=== PATIENT | male | born 1975 | race Hispanic/Latino ===

== ENCOUNTER 2025-01-26 12:26 | Emergency (ER) | payer BC, OTHER ==
[~2025-01-26] VITALS: Ht 172.7 cm; Wt 99.8 kg
[~2025-01-26 12:26] MED LIST: AEC81 PO; ATOR10 PO; CLOP-31 PO; MECL-302 PO; METO25 PO
[2025-01-26 12:27] VITALS: TEMP 97.9
--- NOTE | 2025-01-26 12:40 | ERN ---
General Chief Complaint: Chest Pain Stated Complaint: CHEST PAIN Time Seen by MD: 12:28 Time Seen by Midlevel: 12:28 Source: patient History of Present Illness Initial Comments Patient is a 49-year-old male with a past medical history of hypertension and hyperlipidemia presenting to the emergency department for evaluation of chest pain that started approximately 6 hours prior to arrival. Patient states his chest pain started after he was doing cocaine. On arrival he states his chest pain has significantly improved. Denies any shortness for breath, or any other symptoms at this time. Allergies: Coded Allergies: No Known Drug Allergies (Unverified Allergy, Unknown, 12/06/23) Home Meds Active Scripts Metoprolol Tartrate (Lopressor) 25 Mg Tab, 12.5 MG PO BID, #60 TAB 0 Refills Prov:RAEGAN ABREU MD 12/08/23 Meclizine HCl (Meclizine HCl) 25 Mg Tablet, 25 MG PO TID PRN for DIZZINESS, #30 TAB 0 Refills Prov:RAEGAN ABREU MD 12/08/23 Clopidogrel Bisulfate (Plavix) 75 Mg Tablet, 75 MG PO DAILY, #30 TAB 0 Refills Prov:RAEGAN ABREU MD 12/08/23 Atorvastatin Calcium (LIPITOR) 10 Mg Tab, 10 MG PO DAILY, #30 TAB 0 Refills Prov:RAEGAN ABREU MD 12/08/23 Aspirin (ASPIRIN 81 MG ECTAB) 81 Mg Ectab, 81 MG PO DAILY, #30 TAB.EC 0 Refills Prov:RAEGAN ABREU MD 12/08/23 Past Medical History Past Medical History: No Pertinent History, Hypertension Past Surgical History: Other Social History Social History: Negative, Lives with family ROS Dictation CONSTITUTIONAL: Negative except for HPI HEAD/FACE: Negative except for HPI EENT: Negative except for HPI RESPIRATORY: Negative except for HPI GASTROINTESTINAL/ABDOMINAL: Negative except for HPI GENITOURINARY: Negative except for HPI MUSCULOSKELETAL: Negative except for HPI INTEGUMENTARY: Negative except for HPI NEUROLOGICAL/PSYCH: Negative except for HPI HEMATOLOGIC/LYMPHATIC: Negative except for HPI All Systems Negative, Except as noted above. 13 point review of systems assessed and all negative except for above. Physical Exam Physical Exam Dictation Vital Signs reviewed General Appearance: Alert, oriented x 3, no acute distress, well developed, nourished. Head and Face: non-traumatic. Eyes: PERRL, pink conjunctivas, eyelid no trauma, anterior chamber with arcus senilis. Ears: Pinnas intact and no signs of trauma or erythema ear canals clear and no discharge TM no erythema Nose: No discharge, no bleeding. Oropharynx: Mouth normal, tongue pink, pharynx clear,no erythema, tonsils no exudates, no abscesses noted, mucous membrane moist Neck: Supple, non-tender, no thyromegaly, no masses, no JVD, no bruits Breast:Deferred Chest:No tenderness, no crepitus, no paradoxical movement, no retractions Lungs:Clear, well-ventilated, symmetric, no rales, no wheezing, no rhonchi, no stridor, good breath sounds bilaterally Heart: Regular rate, regular rhythm, no murmur, no gallops Vascular: no peripheral edema, Abdomen: Soft, positive bowel sounds, nondistended, no guarding, nontender, no rebound, no masses no hepatomegaly, no splenomegaly, no Guidry's sign, no hernias. Rectal: Deferred Genital: Deferred Neurological: Normal speech, motor function intact, sensory function intact Musculoskeletal: Neck nontender, full range of motion, back nontender, full range of motion, Extremities: nontender, full range of motion Skin: Color pink, dry, no turgor, no rash, no lacerations, no abrasions, no con tusions. Lymphatic: Deferred Results Laboratory and Microbiology Lab and Micro Result Laboratory Tests Test 01/26/25 13:07 01/26/25 13:18 White Blood Count 7.3 K/uL (4.8-10.8) Red Blood Count 4.85 MIL/uL (4.50-6.20) Hemoglobin 14.9 g/dL (14.0-18.0) Hematocrit 42.7 % (42-54) Mean Corpuscular Volume 88.0 fL (79-99) Mean Corpuscular Hemoglobin 30.7 pg (27.0-33.0) Mean Corpuscular Hemoglobin Concent 34.9 g/dL (32.0-36.0) Red Cell Distribution Width 13.2 % (11.0-15.5) Platelet Count 196 K/uL (130-400) Mean Platelet Volume 9.8 fL (7.5-10.5) Immature Granulocyte % (Auto) 0.7 % (0-1) Neutrophils (%) (Auto) 57.5 % (40.0-77.0) Lymphocytes (%) (Auto) 30.7 % (21.0-51.0) Monocytes (%) (Auto) 7.2 % (3.0-13.0) Eosinophils (%) (Auto) 3.3 % (0.0-8.0) Basophils (%) (Auto) 0.6 % (0.0-5.0) Neutrophils # (Auto) 4.2 K/uL (1.8-7.7) Lymphocytes # (Auto) 2.2 K/uL (1.0-4.8) Monocytes # (Auto) 0.5 K/uL (0.1-1.0) Eosinophils # (Auto) 0.24 K/uL (0.00-0.70) Basophils # (Auto) 0.04 K/uL (0.00-0.20) Absolute Immature Granulocyte (auto 0.05 K/uL (0-1) Nucleated Red Blood Cells 0.0 % (0.0-0.19) Sodium Level 141 mmol/L (136-145) Potassium Level 3.6 mmol/L (3.5-5.1) Chloride Level 104 mmol/L (101-111) Carbon Dioxide Level 28 mmol/L (21-32) Blood Urea Nitrogen 7 mg/dL (7-18) Creatinine 1.0 mg/dL (0.5-1.3) Glomerular Filtration Rate Calc 93 mL/min (>90) Random Glucose 148 mg/dL (70-105) H Total Calcium 9.0 mg/dL (8.5-10.1) Magnesium Level 2.20 mg/dL (1.80-2.40) Total Creatine Kinase 496 U/L (21-232) #*H Troponin I High Sensitivity 224 ng/L (4-75) *H B-Type Natriuretic Peptide 12 pg/mL (0-100) Urine Color LIGHT-YELLOW (YELLOW) Urine Appearance CLEAR (CLEAR) Urine pH 6.5 (5.0-8.0) Urine Specific [place] 1.014 (1.001-1.031) Urine Protein NEGATIVE mg/dL (NEGATIVE) Urine Glucose (UA) NEGATIVE mg/dL (NEGATIVE) Urine Ketones NEGATIVE mg/dL (NEGATIVE) Urine Occult Blood NEGATIVE (NEGATIVE) Urine Nitrate NEGATIVE (NEGATIVE) Urine Bilirubin NEGATIVE mg/dL (NEGATIVE) Urine Urobilinogen 6 mg/dL (0.2-1.0) H Urine Leukocyte Esterase NEGATIVE Adalberto/uL Labs Reviewed?: Yes MDM MDM: 41-year-old male presenting to the emergency department for evaluation of chest pain after cocaine use. On arrival the patient was in no acute distress. He states his chest pain has resolved. Cardiac workup was initiated. His EKG shows sinus tachycardia but no ST elevations or bundle branch blocks. His initial troponin is elevated. My plan was to admit the patient for further observation and management but he was like to sign out against medical advice. And aspirin was administered and the patient decided to leave against medical ad vice. Risks were discussed with the patient and he understands Differential diagnosis: Acute coronary syndrome, cocaine abuse, electrolyte abnormality Rationale: Tests considered and ordered secondary to shared decision making include: Previous outside records reviewed: Old ER visits. Risk of complication and/or morbidity or mortality of patient management: None Medications-Per medication reconciliation Need for hospitalization: Patient does meet criteria for hospitalization. Need for emergency major/minor surgery: No There are no social concerns with this patient. Prescription drug management Prescriptions will include symptomatic care Patient's prior external medical records from other ER visits were reviewed by me as indicated. Prior testing and results from previous visits were reviewed. Prior tests were taken into account with medical decision making and resource utilization, independent historian/historians were used to obtain complete medical history. I independently interpreted the test that were performed, results were reviewed by me and considered findings on radiology if ordered. Medical management and examination interpretation discussions were had by me with other qualified healthcare professionals as indicated for the patient's care. ED Course Orders Procedure Category Date Status Time Cbc With Differential LAB 01/26/25 Complete 12:30 B-Type Natriuretic LAB 01/26/25 Complete Peptide 12:30 Chest 1vw RAD 01/26/25 Taken 12:30 12 Lead Ekg Tracing- EKG 01/26/25 Complete Technical 12:30 Magnesium LAB 01/26/25 Complete 12:30 Creatine Kinase, Total LAB 01/26/25 Complete 12:30 Troponin I High LAB 01/26/25 Complete Sensitivity 12:30 Urinalysis Profile LAB 01/26/25 In Process 12:30 Basic Metabolic Panel LAB 01/26/25 Complete 12:30 Drug Screen Urine LAB 01/26/25 In Process 12:30 Aspirin 325mg Tab PHA 01/26/25 In Process (Aspirin 325mg Tab) 14:00 Current Medications Medications (Trade) Dose Ordered Sig/Jayesh Route PRN Reason Start Time Stop Time Status Last Admin Dose Admin Aspirin (Aspirin 325mg Tab) 325 mg ONCE ONCE PO 01/26/25 14:00 01/26/25 14:01 01/26/25 13:44 Vital Signs Date Time Temp Pulse Resp B/P (MAP) Pulse Ox O2 Delivery O2 Flow Rate FiO2 01/26/25 13:16 92 14 145/76 96 Room Air* 0 21 01/26/25 12:27 97.9 99 20 163/82 98 Room Air HEART Score Response (Comments) Value History: Moderate suspicion (+1) 1 EKG: Normal 0 Age: 45-65yrs (+1) 1 Risk Factors: 1-2 risk factors (+1) 1 Initial Troponin: 1-3x Normal Limit (+1) 1 HEART Score Risk: Mod Risk for MACE (4-6) Total 4 DX & DISP Disposition: AMA (1:50PM) Departure Impression: Primary Impression: Elevated troponin Additional Impression: Left against medical advice Condition: Stable Referrals: NONE (PCP) I have reviewed the case, and I agree with, Diagnosis and Plan I performed the substantive portion of the visit. I have reviewed and personally made and approve the management plan that is documented in the note by myself or the LUX. I acknowledge for responsibility for the patient's management plan. JUAN MOODY Jan 26, 2025 12:39
--- NOTE | 2025-01-26 12:41 | EKG ---
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
[2025-01-26 13:16] VITALS: BP 145/76; PULSE 92; RESP 14; O2SAT 96
[2025-01-26 13:17] LABS: BASOPHILS # (AUTO) 0.04 K/uL (0.00-0.20); BASOPHILS % (AUTO) 0.6 % (0.0-5.0); EOSINOPHILS # (AUTO) 0.24 K/uL (0.00-0.70); EOSINOPHILS % (AUTO) 3.3 % (0.0-8.0); HEMATOCRIT 42.7 % (42-54); IMMATURE GRANULOCYTE ABSOLUTE 0.05 K/uL (0-1); LYMPHOCYTES # (AUTO) 2.2 K/uL (1.0-4.8); LYMPHOCYTES % (AUTO) 30.7 % (21.0-51.0); MEAN CORPUSCULAR HEMOGLOBIN 30.7 pg (27.0-33.0); MEAN CORPUSCULAR HGB CONC 34.9 g/dL (32.0-36.0); MONOCYTES # (AUTO) 0.5 K/uL (0.1-1.0); MONOCYTES % (AUTO) 7.2 % (3.0-13.0); NEUTROPHILS # (AUTO) 4.2 K/uL (1.8-7.7); NEUTROPHILS % (AUTO) 57.5 % (40.0-77.0); PLATELET COUNT (AUTO) 196 K/uL (130-400); RED BLOOD CELL COUNT(AUTO) 4.85 MIL/uL (4.50-6.20); RED CELL DISTRIBUTION WIDTH 13.2 % (11.0-15.5); WHITE BLOOD COUNT (AUTO) 7.3 K/uL (4.8-10.8)
[2025-01-26 13:27] LABS: POTASSIUM 3.6 mmol/L (3.5-5.1)
[2025-01-26 13:40] LABS: MAGNESIUM 2.2 mg/dL (1.80-2.40)
[2025-01-26] MEDS: ASPIRIN 325MG TAB PO ONE (13:44)
[2025-01-26 13:47] LABS: B-TYPE NATRIURETIC PEPTIDE 12 pg/mL (0-100)
[2025-01-26 13:50] LABS: APPEARANCE,URINE CLEAR (CLEAR); BILIRUBIN,URINE NEGATIVE (NEGATIVE); COLOR,URINE LIGHT-YELLOW (YELLOW); GLUCOSE, URINE (UA) NEGATIVE (NEGATIVE); KETONES,URINE NEGATIVE (NEGATIVE); LEUKOCYTE ESTERASE ,URINE NEGATIVE Leu/uL (NEGATIVE); NITRATE,URINE NEGATIVE (NEGATIVE); OCCULT BLOOD,URINE NEGATIVE (NEGATIVE); PH,URINE 6.5 (5.0-8.0); PROTEIN,URINE NEGATIVE (NEGATIVE); UROBILINOGEN,URINE 6 mg/dL (0.2-1.0)
[2025-01-26 13:54] LABS: ADD UA MICROSCOPIC YES
--- NOTE | 2025-01-26 13:54 | NUR ---
PT WAS ADVISED ADMISSION FOR FURTHER WORKUP BY Bandar ALFREDO, PT REFUSED AND WANTING TO LEAVE AMA. SIGNED AMA FORM.
[2025-01-26 13:55] LABS: RBC,URINE 0-1 /HPF (0-1); WBC,URINE 0-1 /HPF (0-1)
[2025-01-26 14:06] LABS: AMPHET/METH SCREEN,URINE NEGATIVE (NEGATIVE); BARBITURATE SCREEN, URINE NEGATIVE (NEGATIVE); BENZODIAZEPINES SCREEN,URINE NEGATIVE (NEGATIVE); CANNABINOID SCREEN,URINE NEGATIVE (NEGATIVE); COCAINE SCREEN,URINE POSITIVE (NEGATIVE); OPIATE SCREEN,URINE NEGATIVE (NEGATIVE); PHENCYCLIDINE SCREEN,URINE NEGATIVE (NEGATIVE)
--- NOTE | 2025-01-26 14:55 | HMCIMG ---
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 Heart size is normal. The pulmonary vascularity and nicanor appear normal. No abnormal pulmonary parenchymal opacity or consolidation identified. No significant pleural effusion noted. No pneumothorax detected. IMPRESSION: No radiographic evidence for any acute cardiopulmonary process.
== END 2025-01-26 13:52 | disposition left against medical advice (07) ==
LOC: EDH 12:26
DX: R79.89 Other specified abnormal findings of blood chemistry (principal); I10 Essential (primary) hypertension; E78.5 Hyperlipidemia, unspecified; Z79.02 Long term (current) use of antithrombotics/antiplatelets; Z79.82 Long term (current) use of aspirin; Z79.899 Other long term (current) drug therapy
CPT/HCPCS: 36415; 71045; 80048; 80305; 81001; 82550; 83735; 83880; 84484; 85025; 93005; 99284

== ENCOUNTER 2025-09-24 06:21 | Emergency (ER) | payer BC ==
[~2025-09-24] VITALS: Ht 170.2 cm; Wt 86.2 kg
[2025-09-24 06:44] LABS: IMMATURE GRANULOCYTE ABSOLUTE 0.04 K/uL (0-1); NUCLEATED RED BLOOD CELLS 0.0 % (0.0-0.19); PLATELET COUNT (AUTO) 189 K/uL (130-400); RED BLOOD CELL COUNT(AUTO) 4.87 MIL/uL (4.50-6.20); RED CELL DISTRIBUTION WIDTH 12.7 % (11.0-15.5); WHITE BLOOD COUNT (AUTO) 9.2 K/uL (4.8-10.8)
[2025-09-24 06:59] LABS: CREATINE KINASE, TOTAL 212.0 U/L (21-232); CREATININE 0.9 mg/dL (0.5-1.3); GLOMERULAR FILTR. RATE CALC 105.0 mL/min (>90); GLUCOSE,RANDOM 100.0 mg/dL (70-105); SODIUM SERUM 139.0 mmol/L (136-145); UREA NITROGEN, BLOOD 7.0 mg/dL (7-18)
--- NOTE | 2025-09-24 07:18 | HMCIMG ---
EXAM: CR Chest, 1 View. CLINICAL HISTORY: chest pain COMPARISON: None provided. FINDINGS: LUNGS: The lungs show no infiltrate or other acute finding. PLEURAL SPACES: No evidence of pleural effusion or pneumothorax. MEDIASTINUM: Cardiac size and mediastinal contours are within normal limits. BONES: No aggressive appearing osseous lesion seen. IMPRESSION: No acute cardiopulmonary pathology is evident. /[place]
--- NOTE | 2025-09-24 07:58 | ERN ---
General Chief Complaint: Chest Pain Stated Complaint: CHEST PAIN Time Seen by MD: 07:36 Source: patient History of Present Illness Initial Comments My patient, 50-year-old male, was brought by EMS to the emergency with complaint of chest pressure. Patient stated that it began in the afternoon yesterday after he had a bottle of beer. It was pressure-like sensation in the center of chest without radiation to any part of the body. He denied shortness of breath or nausea. He states that pain has resolved now. He also takes aspirin at home regularly. Severity: moderate Allergies: Coded Allergies: No Known Drug Allergies (Unverified Allergy, Unknown, 12/06/23) Home Meds Active Scripts Metoprolol Tartrate (Lopressor) 25 Mg Tab, 12.5 MG PO BID, #60 TAB 0 Refills Prov:RAEGAN ABREU MD 12/08/23 Meclizine HCl (Meclizine HCl) 25 Mg Tablet, 25 MG PO TID PRN for DIZZINESS, #30 TAB 0 Refills Prov:RAEGAN ABREU MD 12/08/23 Clopidogrel Bisulfate (Plavix) 75 Mg Tablet, 75 MG PO DAILY, #30 TAB 0 Refills Prov:RAEGAN ABREU MD 12/08/23 Atorvastatin Calcium (LIPITOR) 10 Mg Tab, 10 MG PO DAILY, #30 TAB 0 Refills Prov:RAEGAN ABREU MD 12/08/23 Aspirin (ASPIRIN 81 MG ECTAB) 81 Mg Ectab, 81 MG PO DAILY, #30 TAB.EC 0 Refills Prov:RAEGAN ABREU MD 12/08/23 Past Medical History Past Medical History: No Pertinent History, Hypertension Past Surgical History: Other Social History Social History: Negative, Lives with family Constitutional: (-) chills, (-) diaphoresis, (-) fever, (-) malaise, (-) weakne ss, (-) other documentation EENTM: (-) eye pain, (-) blurred vision, (-) tearing, (-) double vision, (-) e ar pain, (-) ear discharge, (-) nose pain, (-) nose congestion, (-) throat pain, (-) Throat swelling, (-) mouth pain, (-) tooth pain, (-) mouth swelling, (-) other documentation Respiratory: (-) cough, (-) orthopnea, (-) short of breath, (-) stridor, (-) wheezing, (-) other documentation Cardiovascular: (+) chest pain (Resolved now) Gastrointestinal/Abdominal: (-) nausea, (-) vomiting, (-) diarrhea, (-) abdominal pain, (-) abdominal distention, (-) constipation, (-) rectal bleeding, (-) dark stool/melena, (-) other documentation Genitourinary: (-) penile discharge, (-) dysuria, (-) frequency, (-) hematuria, (-) pain, (-) other documentation Musculoskeletal: (-) Neck pain, (-) back pain, (-) Flank Pain, (-) joint pain, (-) joint swelling, (-) muscle pain, (-) muscle stiffness, (-) gout, (-) other documentation Skin: (-) laceration, (-) contusion, (-) abrasion, (-) abscess, (-) rash, (-) change in color, (-) change in hair, (-) change in nails, (-) diaphoresis, (-) dryness, (-) other documentation Neuro: (-) altered mental status, (-) headache, (-) syncope, (-) paralysis, (-) numbness, (-) seizure, (-) pre-existing deficit, (-) tremors, (-) weakness, (-) dizziness, (-) slurred speech, (-) vertigo, (-) other documentation Physical Exam General Appearance: (+) no apparent distress Orientation: (+) alert, (+) oriented x 3 Head/Face Trauma: No Eye: bilateral eye normal inspection Ear, Nose, Throat: (+) hearing grossly normal, (+) normal ENT inspection, (+) moist mucous membraine, (+) normal pharynx Neck: (+) normal inspection, (+) supple, (+) full range of motion Respiratory: (+) chest non-tender, (+) lungs clear, (+) well ventilated Heart: (+) regular Vascular: (+) no edema Gastrointestinal: (+) soft, (+) non-tender, (+) no organomegaly Back: (+) normal inspection, (+) no vertebral tenderness Extremities: (+) normal range of motion, (+) non-tender, (+) normal inspection Neurologic/Psychiatric: (+) normal speech, (+) no motor defecits, (+) no sensory deficits Skin: (+) normal color Results Laboratory and Microbiology Lab and Micro Result Laboratory Tests Test 09/24/25 06:34 09/24/25 07:45 09/24/25 07:48 09/24/25 08:36 White Blood Count 9.2 K/uL (4.8-10.8) Red Blood Count 4.87 MIL/uL (4.50-6.20) Hemoglobin 15.2 g/dL (14.0-18.0) Hematocrit 43.4 % (42-54) Mean Corpuscular Volume 89.1 fL (79-99) Mean Corpuscular Hemoglobin 31.2 pg (27.0-33.0) Mean Corpuscular Hemoglobin Concent 35.0 g/dL (32.0-36.0) Red Cell Distribution Width 12.7 % (11.0-15.5) Platelet Count 189 K/uL (130-400) Mean Platelet Volume 9.9 fL (7.5-10.5) Immature Granulocyte % (Auto) 0.4 % (0-1) Neutrophils (%) (Auto) 50.7 % (40.0-77.0) Lymphocytes (%) (Auto) 39.0 % (21.0-51.0) Monocytes (%) (Auto) 5.4 % (3.0-13.0) Eosinophils (%) (Auto) 4.1 % (0.0-8.0) Basophils (%) (Auto) 0.4 % (0.0-5.0) Neutrophils # (Auto) 4.7 K/uL (1.8-7.7) Lymphocytes # (Auto) 3.6 K/uL (1.0-4.8) Monocytes # (Auto) 0.5 K/uL (0.1-1.0) Eosinophils # (Auto) 0.38 K/uL (0.00-0.70) Basophils # (Auto) 0.04 K/uL (0.00-0.20) Absolute Immature Granulocyte (auto 0.04 K/uL (0-1) Nucleated Red Blood Cells 0.0 % (0.0-0.19) Sodium Level 139 mmol/L (136-145) Potassium Level 3.6 mmol/L (3.5-5.1) Chloride Level 104 mmol/L (101-111) Carbon Dioxide Level 24 mmol/L (21-32) Blood Urea Nitrogen 7 mg/dL (7-18) Creatinine 0.9 mg/dL (0.5-1.3) Glomerular Filtration Rate Calc 105 mL/min (>90) Random Glucose 100 mg/dL (70-105) Total Calcium 8.4 mg/dL (8.5-10.1) L Total Creatine Kinase 212 U/L (21-232) # Troponin I High Sensitivity 246 ng/L (4-75) *H 240 ng/L (4-75) *H Urine Color LIGHT-YELLOW (YELLOW) Urine Appearance CLEAR (CLEAR) Urine pH 5.5 (5.0-8.0) Urine Specific [place] 1.008 (1.001-1.031) Urine Protein NEGATIVE mg/dL (NEGATIVE) Urine Glucose (UA) NEGATIVE mg/dL (NEGATIVE) Urine Ketones NEGATIVE mg/dL (NEGATIVE) Urine Occult Blood NEGATIVE (NEGATIVE) Urine Nitrate NEGATIVE (NEGATIVE) Urine Bilirubin NEGATIVE mg/dL (NEGATIVE) Urine Urobilinogen 0.2 mg/dL (0.2-1.0) Urine Leukocyte Esterase NEGATIVE Adalberto/uL Urine Opiates Screen NEGATIVE (NEGATIVE) Urine Barbiturates Screen NEGATIVE (NEGATIVE) Urine Phencyclidine Screen NEGATIVE (NEGATIVE) Urine Amphetamines Screen NEGATIVE (NEGATIVE) Urine Benzodiazepines Screen NEGATIVE (NEGATIVE) Urine Cocaine Screen POSITIVE (NEGATIVE) H Urine Marijuana (THC) Screen NEGATIVE (NEGATIVE) Serum Alcohol 155 mg/dL (0-10) H EKG/XRAY/US/CT/MRI EKG Comment No ST-elevation Sinus rhythm Rate 81 DC 165 QT 401 QTcB 466 P 26, QRS 49, T 115 X-RAY Comment Chest x-ray No acute cardiopulmonary pathology is evident. MDM MDM: Differential diagnosis: Unstable angina versus coronary artery disease versus cocaine induced chest pain This patient, 50-year-old male, presented with complain of chest pressure. CBC, BMP, EKG, chest x-ray, UA profile and repeat troponins were done. Patient's troponins were elevated. Urine drug screen showed positive cocaine. The patient signed out against medical advice from the ER. We had a detailed discussion with the patient regarding elevated troponins but the patient did not wish to continue any treatment at this time and was refusing to stay and complete evaluation and disposition. The patient was fully aware of all risks and benefits of leaving against medical advice. Possible benefits included correction of the current medical condition and improvement of symptoms. However, the patient was advised that possible risk of leaving against medical advice included worsening of the current medical condition, including or causing . The patient verbalized understanding of the risks and benefits discussed. Despite this, the patient has signed out against medical advice. ED Course Orders Procedure Category Date Status Time Cbc With Differential LAB 09/24/25 Complete 06:29 Chest 1vw RAD 09/24/25 Resulted 06:29 12 Lead Ekg Tracing- EKG 09/24/25 Complete Technical 06:29 Creatine Kinase, Total LAB 09/24/25 Complete 06:29 Troponin I High LAB 09/24/25 Complete Sensitivity 06:29 Urinalysis Profile LAB 09/24/25 Complete 06:29 Basic Metabolic Panel LAB 09/24/25 Complete 06:29 Drug Screen Urine LAB 09/24/25 Complete 06:29 Troponin I High LAB 09/24/25 Complete Sensitivity 07:41 Alcohol, Blood LAB 09/24/25 Complete 08:22 Vital Signs Date Time Temp Pulse Resp B/P (MAP) Pulse Ox O2 Delivery O2 Flow Rate FiO2 09/24/25 08:05 98.4 79 19 132/80 99 Room Air* 0 21 09/24/25 06:35 98.4 82 18 132/56 99 Room Air* 0 21 09/24/25 06:22 98.1 103 20 146/83 97 Room Air 0 DX & DISP Disposition: AMA Departure Impression: Primary Impression: Elevated troponin Additional Impressions: Left against medical advice, Angina at rest Condition: Against Medical Advice Additional Instructions: This is a has been with the patient left against medical advice has been despite our efforts to have him be admitted due to elevation of cardiac enzymes he refused. 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 Referrals: SRINIVAS SUGGS DO (PCP) I have reviewed, & agreed with my scribe's, documentation. I have reviewed the case, and I agree with, Diagnosis and Plan I have examined patient, & reviewed all documents, & agreed W/ the Diagnosis, and Plan ATTESTATION BY PHYSICIAN I have seen and examined the patient. I reviewed the documentation, medical decision making, and treatment plan as noted by the resident physician above. I agree with the findings and plan of care. RYAN WILKERSON MD, MUHAMMAD H MD Sep 24, 2025 07:58 RYAN WILKERSON MD Sep 24, 2025 09:09
[2025-09-24 08:00] LABS: APPEARANCE,URINE CLEAR (CLEAR); GLUCOSE, URINE (UA) NEGATIVE (NEGATIVE); LEUKOCYTE ESTERASE ,URINE NEGATIVE Leu/uL (NEGATIVE); NITRATE,URINE NEGATIVE (NEGATIVE); OCCULT BLOOD,URINE NEGATIVE (NEGATIVE)
[2025-09-24 08:01] LABS: ADD UA MICROSCOPIC NO
[2025-09-24 08:05] VITALS: BP 132/80; PULSE 79; RESP 19; TEMP 98.4; O2SAT 99
[2025-09-24 08:07] LABS: AMPHET/METH SCREEN,URINE NEGATIVE (NEGATIVE); BARBITURATE SCREEN, URINE NEGATIVE (NEGATIVE); CANNABINOID SCREEN,URINE NEGATIVE (NEGATIVE); COCAINE SCREEN,URINE POSITIVE (NEGATIVE)
--- NOTE | 2025-09-24 08:46 | NUR ---
[id number] DR WILKERSON SPOKE TO PT EXPLAINED RESULTS PT WOULD BE ADMITTED, PT REFUSED STATES HE DOES NOT WANT TO STAY. PT STATED HE WANTS TO LEAVE. PT EXPLAINED RISKS PT VERBALIZED UNDERSTANDING. IV REMOVED. PT VOLUTARILY SIGNED AMA FORM. DR WILKERSON AGREED AND AWARE.
--- NOTE | 2025-09-24 08:57 | EKG ---
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
== END 2025-09-24 08:45 | disposition home or self-care (01) ==
LOC: EDH 06:21
DX: I20.89 Other forms of angina pectoris (principal); R79.89 Other specified abnormal findings of blood chemistry; Z53.29 Procedure and treatment not carried out because of patient's decision for other reasons; Z79.02 Long term (current) use of antithrombotics/antiplatelets; Z79.82 Long term (current) use of aspirin; Z79.899 Other long term (current) drug therapy
CPT/HCPCS: 36415; 71045; 80048; 80305; 81003; 82550; 84484; 85025; 93005; 99284